=== PATIENT | female | born 1975 | race Caucasian/White ===

== ENCOUNTER 2018-07-01 10:54 | Inpatient (IN) | payer OTHER ==
[~2018-07-01] VITALS: Ht 167.6 cm; Wt 76.2 kg
[~2018-07-01 10:54] MED LIST: ASACOL HD800 MG PO; ESTR0.624
[2018-07-01] MEDS ORDERED: VAGIFEM10 MCG (11:08)
== END 2018-07-03 11:44 | disposition home or self-care (01) | DRG 699 ==
LOC: ER 10:54 → SEC-K 18:31 → MEDJ 07-02 13:45 → SURH 07-02 14:07
PROVIDERS: ADMIT Urology
PROC: BW21ZZZ Computerized Tomography (CT Scan) of Abdomen and Pelvis (ICD-10-PCS; principal; 2018-07-01)
DX: N30.41 Irradiation cystitis with hematuria (principal); N13.39 Other hydronephrosis; R31.0 Gross hematuria; Z85.41 Personal history of malignant neoplasm of cervix uteri

== ENCOUNTER 2019-04-28 15:38 | Emergency (ER) | payer OTHER ==
[~2019-04-28] VITALS: Ht 167.6 cm; Wt 79.4 kg
[~2019-04-28 15:38] MED LIST changes: +VAGIFEM10 MCG
== END 2019-04-28 22:54 | disposition home or self-care (01) ==
LOC: ER 15:38
DX: N39.0 Urinary tract infection, site not specified (principal)

== ENCOUNTER 2022-10-07 19:59 | Emergency (ER) | payer OTHER ==
[~2022-10-07] VITALS: Ht 167.6 cm; Wt 77.1 kg
== END 2022-10-08 03:45 | disposition home or self-care (01) ==
LOC: ER 19:59
DX: N39.0 Urinary tract infection, site not specified (principal); Z88.0 Allergy status to penicillin; Z88.2 Allergy status to sulfonamides
CPT/HCPCS: 36415; 74178; Q9965